=== PATIENT | male | born 1970 | race Caucasian/White ===

== ENCOUNTER 2016-06-23 15:26 | Emergency (ER) | payer OTHER ==
[~2016-06-23] VITALS: Ht 177.8 cm; Wt 95.3 kg
[2016-06-23] MEDS ORDERED: KETOROLAC 30 MG/ML VIAL (J1885) IM ONE (20:15)
--- NOTE | 2016-06-23 21:10 | REPUSA ---
CT of the lumbar spine without contrast Clinical history: Pain. Technique: Multiple axial CT images were obtained through the lumbar spine without administration of contrast. Coronal and sagittal 3-D reconstructed images were also obtained. Findings: The lumbar vertebral bodies are in satisfactory positioning and alignment. No fractures or dislocatio ns are demonstrated. 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 Interv ertebral disc spaces are well-maintained. There is no evidence of facet subluxation. The neural yeimy en appear grossly patent. The spinal canal demonstrates normal caliber and contour without evidence o f spinal stenosis. The surrounding soft tissues are within normal limits. Impression: Unremarkable CT examination of the lumbar spine.
[2016-06-23] MEDS ORDERED: tiZANidine 4 MG TAB PO ONE (21:15)
[2016-06-23 21:29] VITALS: BP 136/91
[2016-06-23] MEDS ORDERED: NAPR500T PO (21:40)
[2016-06-23] MEDS ORDERED: TIZA4CAP3 PO (21:40)
== END 2016-06-23 21:51 | disposition home or self-care (01) ==
LOC: M ED 18:16
DX: S39.012A Strain of muscle, fascia and tendon of lower back, initial encounter (principal); X58.XXXA Exposure to other specified factors, initial encounter; Y92.828 Other wilderness area as the place of occurrence of the external cause; Y93.23 Activity, snow (alpine) (downhill) skiing, snowboarding, sledding, tobogganing and snow tubing; Y99.8 Other external cause status; M54.32 Sciatica, left side; Z90.89 Acquired absence of other organs
CPT/HCPCS: 72131; 96372; 99282; J1885

== ENCOUNTER 2017-01-27 06:55 | Emergency (ER) | payer OTHER ==
[~2017-01-27] VITALS: Ht 177.8 cm; Wt 100.0 kg
[~2017-01-27 06:55] MED LIST: NAPR500T PO; TIZA4CAP3 PO
[2017-01-27 06:59] VITALS: BP 125/84
[2017-01-27] MEDS ORDERED: NAPROXEN 250 MG TAB PO ONE (07:15)
[2017-01-27] MEDS ORDERED: PRED20TA PO (07:34)
[2017-01-27] MEDS ORDERED: MOBI4TAB PO (07:34)
--- NOTE | 2017-01-27 07:58 | REP ---
Right shoulder series: Three views. History: Trauma. Shoulder pain. Findings: The right glenohumeral and acromioclavicular joints are normally aligned. No fracture or subluxation is seen. Periarticular soft tissues are unremarkable. Impression: Negative right shoulder series. Signed by Rodríguez Peres MD 01/27/2017 05:25 P
== END 2017-01-27 08:01 | disposition home or self-care (01) ==
LOC: M ED 06:55
DX: S43.401A Unspecified sprain of right shoulder joint, initial encounter (principal); X50.9XXA Other and unspecified overexertion or strenuous movements or postures, initial encounter; Y92.9 Unspecified place or not applicable; Y93.B2 Activity, push-ups, pull-ups, sit-ups; Y99.1 Military activity; M54.9 Dorsalgia, unspecified; Z87.891 Personal history of nicotine dependence

== ENCOUNTER → 2017-03-25 | Outpatient (CLI) | payer OTHER | LOC: M PAIN 10:45 | DX: G89.29 Other chronic pain (principal); M53.3 Sacrococcygeal disorders, not elsewhere classified; M51.26 Other intervertebral disc displacement, lumbar region; G47.30 Sleep apnea, unspecified; Z87.891 Personal history of nicotine dependence | CPT/HCPCS: G0463 ==

== ENCOUNTER → 2017-04-23 | Outpatient (CLI) | payer OTHER ==
[~2017-04-23] MED LIST changes: +BUPIVACAINE HCL 0.25% 30 ML VIAL As Ordered; +ISOVUE-M 300 61% 15ML VIAL (Q9967) As Ordered; +LIDOCAINE 1% MDV 20ML VIAL As Ordered; +LIDOCAINE 1% SDV INJ 30 ML VIAL As Ordered; -NAPR500T PO; -TIZA4CAP3 PO; +TRIAMCINOLONE ACETONIDE SUSP 40 MG/ML VIAL (J3301) As Ordered; +diazePAM 5 MG TAB As Ordered; +oxyCODONE 5MG TAB As Ordered
== END ==
LOC: M PAIN 10:30
DX: G89.29 Other chronic pain (principal); M46.1 Sacroiliitis, not elsewhere classified; G47.30 Sleep apnea, unspecified; M19.179 Post-traumatic osteoarthritis, unspecified ankle and foot
CPT/HCPCS: J3301

== ENCOUNTER → 2017-05-07 | Outpatient (CLI) | payer OTHER | LOC: M PAIN 14:45 | DX: M53.3 Sacrococcygeal disorders, not elsewhere classified (principal); M51.26 Other intervertebral disc displacement, lumbar region; G47.30 Sleep apnea, unspecified; M19.079 Primary osteoarthritis, unspecified ankle and foot; M19.011 Primary osteoarthritis, right shoulder; Z87.891 Personal history of nicotine dependence | CPT/HCPCS: G0463 ==

== ENCOUNTER → 2017-10-06 | Outpatient (CLI) | payer OTHER | LOC: M PAIN 13:00 | DX: M53.3 Sacrococcygeal disorders, not elsewhere classified (principal); M51.26 Other intervertebral disc displacement, lumbar region; Z87.891 Personal history of nicotine dependence | CPT/HCPCS: G0463 ==

== ENCOUNTER → 2017-11-16 | Outpatient (CLI) | payer OTHER ==
[~2017-11-16] MED LIST changes: -LIDOCAINE 1% MDV 20ML VIAL As Ordered
== END ==
LOC: M PAIN 08:45
DX: G89.29 Other chronic pain (principal); M46.1 Sacroiliitis, not elsewhere classified; M53.88 Other specified dorsopathies, sacral and sacrococcygeal region; G47.30 Sleep apnea, unspecified; M19.079 Primary osteoarthritis, unspecified ankle and foot; M19.011 Primary osteoarthritis, right shoulder; Z79.899 Other long term (current) drug therapy; Z87.891 Personal history of nicotine dependence
CPT/HCPCS: J3301

== ENCOUNTER 2018-02-07 04:56 | Emergency (ER) | payer OTHER ==
[2018-02-07 05:43] LABS: BASO % 0.4 % (0.0-1.0); EOS # 0.1 10^3/uL (0.0-0.50); EOS % 0.5 % (0.0-3.0); HEMATOCRIT 45.3 % (42.0-52.0); HEMOGLOBIN 15.6 g/dl (13.5-17.5); IMMATURE GRANULOCYTE % 0.3 % (0-3.0); LYMPH # 1.1 10^3/uL (1.5-4.5); LYMPH % 10.4 % (24.0-44.0); MEAN CORPUSCULAR HEMOGLOBIN 29.6 pg (27.0-33.0); MEAN CORPUSCULAR HGB CONC 34.4 g/dl (32.0-36.5); MONO # 1.3 10^3/uL (0.0-0.8); MONO % 11.8 % (0.0-5.0); NEUTROPHILS # 8.4 10^3/uL (1.8-7.7); NEUTROPHILS % 76.6 % (36.0-66.0); PLATELET COUNT, AUTOMATED 235 10^3/uL (150-450); RED BLOOD COUNT 5.27 10^6/uL (4.30-6.10); RED CELL DISTRIBUTION WIDTH 13.2 % (11.5-14.5)
[2018-02-07] MEDS: NS 1,000 ML IV (05:49)
[2018-02-07] MEDS: ACETAMINOPHEN TAB 650MG DOSE (2X325MG) PO (05:50)
[2018-02-07 05:56] LABS: LACTIC ACID SEPSIS PROTOCOL 1.1 MMOL/L (0.4-2.0)
[2018-02-07 06:04] LABS: ALBUMIN 3.8 GM/DL (3.2-5.2); ALBUMIN/GLOBULIN RATIO 1.06 (1.00-1.93); ALKALINE PHOSPHATASE 87 U/L (45-117); ALT/SGPT 32 U/L (12-78); ANION GAP 8 MEQ/L (8-16); AST/SGOT 20 U/L (7-37); BILIRUBIN,DIRECT 0.1 MG/DL (0.0-0.2); BILIRUBIN,TOTAL 0.4 MG/DL (0.2-1.0); BLOOD UREA NITROGEN 16 MG/DL (7-18); CALCIUM LEVEL 9.4 MG/DL (8.5-10.1); CARBON DIOXIDE LEVEL 27 MEQ/L (21-32); CHLORIDE LEVEL 105 MEQ/L (98-107); CREATININE FOR GFR 1.17 MG/DL (0.70-1.30); GLOMERULAR FILTRATION RATE > 60.0 (>60); GLUCOSE, FASTING 119 MG/DL (70-100); POTASSIUM SERUM 4.4 MEQ/L (3.5-5.1); SODIUM LEVEL 140 MEQ/L (136-145); TOTAL PROTEIN 7.4 GM/DL (6.4-8.2)
[2018-02-07] MEDS: IBUPROFEN 800 MG TAB PO (07:03)
[2018-02-07] MEDS: MOXIFLOXACIN 400 MG TAB PO (09:03)
== END 2018-02-07 09:07 | disposition home or self-care (01) ==
LOC: M ED 04:56
DX: J40 Bronchitis, not specified as acute or chronic (principal); Z87.891 Personal history of nicotine dependence
CPT/HCPCS: 71046

== ENCOUNTER → 2019-03-05 | Outpatient (CLI) | payer OTHER ==
[~2019-03-05] MED LIST changes: +AVEL1TAB3 PO; +BENA25CA4 PO; -BUPIVACAINE HCL 0.25% 30 ML VIAL As Ordered; -ISOVUE-M 300 61% 15ML VIAL (Q9967) As Ordered; -LIDOCAINE 1% SDV INJ 30 ML VIAL As Ordered; +MOBI4TAB PO; +NAPR-837 PO; +PRED20TA PO; +TIZA4CAP PO; -TRIAMCINOLONE ACETONIDE SUSP 40 MG/ML VIAL (J3301) As Ordered; -diazePAM 5 MG TAB As Ordered; -oxyCODONE 5MG TAB As Ordered
--- NOTE | 2019-03-05 13:53 | ECHO ---
DATE OF PROCEDURE: 03/05/2019 REFERRING PROVIDER: MARIBETH Hurtado INDICATION: Chest pain. Height 175 cm, weight 104 kg. DIMENSIONS: IVS: 1.1 LV: 4.1 LVPW: 1.1 LA: 3.5 Aorta: 3.4 RV: 2.8 Left atrial volume index: 24 IVC: 1.7 Mitral E wave velocity: 81 A wave: 60 E prime septal: 8.7 E prime lateral: 8.7 FINDINGS: The study is of acceptable technical quality. The patient is in sinus rhythm. Left ventricle is of normal size and systolic function with estimated left ventricular ejection fraction (LVEF) 60%. Right ventricle also appears normal size and systolic function. Both atria appear normal. All four cardiac valves were reasonably well seen and appear structurally normal. No pericardial effusion is present. Inferior vena cava is normal size. Aortic root and aortic arch appear normal. Abdominal aorta was not well visualized. Doppler interrogation reveals trace aortic insufficiency. Also trace mitral, tricuspid and pulmonic insufficiency. Evaluation of diastolic function reveals normal diastolic function of left ventricle based on tissue Doppler imaging of mitral annulus, mitral inflow pattern and size of left atrium. CONCLUSIONS: 1. Study is of acceptable technical quality. 2. Normal left ventricular (LV) size, systolic and diastolic function. 3. No significant valvular disease. 4. Normal central venous pressure and likely normal pulmonary artery pressure. COMMENT: Subacute bacterial endocarditis (SBE) prophylaxis is not recommended. No obvious findings to explain chest pain.
== END ==
LOC: M CARPUL 11:07
PROVIDERS: ATTEND Nurse Practitioner Family
DX: R07.89 Other chest pain (principal)

== ENCOUNTER → 2020-03-27 | Outpatient (CLI) | payer SELFPAY | LOC: M LABSMTC 18:43 | PROVIDERS: ATTEND Pediatrics | DX: Z11.59 Encounter for screening for other viral diseases (principal) ==

== ENCOUNTER → 2020-04-28 | Outpatient (CLI) | payer SELFPAY | LOC: M LABSMTC 10:05 | PROVIDERS: ATTEND Pediatrics | DX: Z20.822 Contact with and (suspected) exposure to COVID-19 (principal) ==

== ENCOUNTER 2021-05-24 08:15 | Emergency (ER) | payer OTHER, SELFPAY ==
[2021-05-24] MEDS ORDERED: NS 1,000 ML IV ONE (08:25)
[2021-05-24] MEDS ORDERED: ISOVUE-370 76% 100ML VIAL As Ordered ONE (08:33)
[2021-05-24 08:45] LABS: BASO % 0.4 % (0.0-1.0); EOS # 0.1 10^3/uL (0.0-0.5); EOS % 1.4 % (0.0-3.0); HEMATOCRIT 44.7 % (42.0-52.0); HEMOGLOBIN 15.1 g/dl (13.5-17.5); LYMPH # 1.6 10^3/uL (1.5-5.0); LYMPH % 33.1 % (24.0-44.0); MEAN CORPUSCULAR HEMOGLOBIN 29.1 pg (27.0-33.0); MEAN CORPUSCULAR HGB CONC 33.8 g/dl (32.0-36.5); MEAN CORPUSCULAR VOLUME 86.1 fl (80.0-96.0); MONO # 0.5 10^3/uL (0.0-0.8); MONO % 9.9 % (2.0-8.0); NEUTROPHILS # 2.7 10^3/uL (1.5-8.5); NEUTROPHILS % 54.8 % (36.0-66.0); PLATELET COUNT, AUTOMATED 265 10^3/uL (150-450); RED BLOOD COUNT 5.19 10^6/uL (4.30-6.10); WHITE BLOOD COUNT 4.9 10^3/uL (4.0-10.0)
[2021-05-24 08:59] LABS: INR 0.96; PROTHROMBIN TIME 13.2 SECONDS (12.7-14.5)
[2021-05-24 09:00] LABS: PARTIAL THROMBOPLASTIN TIME 28.5 SECONDS (25.9-37.0)
[2021-05-24] MEDS ORDERED: MORPHINE 2 MG/ML 1ML VIAL (J2270) IV PRN (09:15)
[2021-05-24 09:18] LABS: ALT/SGPT 47 U/L (12-78); AMYLASE 45 U/L (25-115); BILIRUBIN,DIRECT < 0.1 MG/DL (0.0-0.2); BILIRUBIN,TOTAL 0.2 MG/DL (0.2-1.0); BLOOD UREA NITROGEN 23 MG/DL (7-18); CALCIUM LEVEL 8.9 MG/DL (8.5-10.1); CARBON DIOXIDE LEVEL 26 MEQ/L (21-32); CHLORIDE LEVEL 109 MEQ/L (98-107); CREATININE FOR GFR 1.25 MG/DL (0.70-1.30); ETHYL ALCOHOL (ETHANOL) < 0.003 % (0.000-0.010); GLOMERULAR FILTRATION RATE > 60.0 (>60); GLUCOSE, FASTING 101 MG/DL (70-100); LIPASE 109 U/L (73-393); POTASSIUM SERUM 4.8 MEQ/L (3.5-5.1); SODIUM LEVEL 141 MEQ/L (136-145); TOTAL PROTEIN 7.7 GM/DL (6.4-8.2)
[2021-05-24 09:21] LABS: CK-MB VALUE MASS < 1.0 NG/ML (<3.6); CPK CREATINE PHOSPHOKINASE 171 U/L (39-308); MB/CK RELATIVE INDEX 0.58 (< OR =4)
[2021-05-24 10:51] LABS: RSV AMPLIFICATION NEGATIVE (NEGATIVE)
[2021-05-24] MEDS ORDERED: KETOROLAC 30 MG/ML 1ML VIAL IV ONE (13:15)
[2021-05-24 13:35] LABS: APPEARANCE, URINE CLEAR (CLEAR); BACTERIA, URINE AUTO NEGATIVE (NEGATIVE); BILIRUBIN, URINE AUTO NEGATIVE (NEGATIVE); BLOOD, URINE BLOOD NEGATIVE (NEGATIVE); COLOR, URINE YELLOW (YELLOW); GLUCOSE, URINE (UA) AUTO NEGATIVE (NEGATIVE); KETONE, URINE AUTO NEGATIVE (NEGATIVE); LEUKOCYTE ESTERASE, URINE AUTO NEGATIVE (NEGATIVE); NITRITE, URINE AUTO NEGATIVE (NEGATIVE); PROTEIN, URINE AUTO NEGATIVE (NEGATIVE); RBC, URINE AUTO 0 /HPF (0-3); SPECIFIC GRAVITY URINE AUTO 1.025 (1.002-1.035); SQUAMOUS EPITHELIAL CELL UR AU 0 /HPF (0-6); UROBILINOGEN, URINE AUTO 0.2 mg/dL (0.0-2.0); WBC, URINE AUTO 0 /HPF (0-3)
[2021-05-24 13:59] LABS: AMPHETAMINES LEVEL URINE NEGATIVE (NEGATIVE); BARBITURATES URINE NEGATIVE (NEGATIVE); BENZODIAZEPINES URINE NEGATIVE (NEGATIVE); CANNABINOIDS URINE NEGATIVE (NEGATIVE); COCAINE METABOLITE URINE NEGATIVE (NEGATIVE); METHADONE URINE NEGATIVE (NEGATIVE); OPIATES URINE POSITIVE (NEGATIVE); PHENCYCLIDINE URINE NEGATIVE (NEGATIVE)
[2021-05-24 14:15] VITALS: BP 135/78
[2021-05-24] MEDS ORDERED: KETO10TAB PO (15:08)
[2021-05-24] MEDS ORDERED: METH-1165 PO (15:08)
== END 2021-05-24 16:04 | disposition home or self-care (01) ==
LOC: EDBD 08:15 → M ED 08:15
DX: M62.838 Other muscle spasm (principal); T40.2X5A Adverse effect of other opioids, initial encounter; K21.9 Gastro-esophageal reflux disease without esophagitis; F17.200 Nicotine dependence, unspecified, uncomplicated; Z88.6 Allergy status to analgesic agent; W11.XXXA Fall on and from ladder, initial encounter; Y92.009 Unspecified place in unspecified non-institutional (private) residence as the place of occurrence of the external cause; Y93.9 Activity, unspecified; Y99.9 Unspecified external cause status
CPT/HCPCS: 70450; 71045; 71260; 72125; 73564; 73590; 73610; 74177; 80047; 80048; 80076; 80307; 81001; 82077; 82150; 82550; 82553; 83605; 83690; 84484; 85025; 85610; 85730; 86850; 86900; 86901; 87631; 93041; 94760; 96361; 96374; 96375; 99285; J1885; J2270; Q9967

== ENCOUNTER 2021-08-28 20:53 | Observation (INO) | payer OTHER ==
[~2021-08-28] VITALS: Ht 177.8 cm; Wt 111.4 kg
[~2021-08-28 20:53] MED LIST changes: +KETO10TAB PO; +METH-1165 PO
[2021-08-28] MEDS ORDERED: FAMO20TA PO (21:09)
[2021-08-28 23:16] LABS: BASO # 0.1 10^3/uL (0.0-0.2); BASO % 0.7 % (0.0-1.0); EOS # 0.3 10^3/uL (0.0-0.5); EOS % 3.7 % (0.0-3.0); HEMATOCRIT 43.1 % (42.0-52.0); LYMPH # 2.9 10^3/uL (1.5-5.0); LYMPH % 37.6 % (24.0-44.0); MEAN CORPUSCULAR HEMOGLOBIN 29.4 pg (27.0-33.0); MEAN CORPUSCULAR HGB CONC 34.8 g/dl (32.0-36.5); MEAN CORPUSCULAR VOLUME 84.5 fl (80.0-96.0); MONO # 0.8 10^3/uL (0.0-0.8); NEUTROPHILS # 3.6 10^3/uL (1.5-8.5); NEUTROPHILS % 47.7 % (36.0-66.0); PLATELET COUNT, AUTOMATED 252 10^3/uL (150-450); WHITE BLOOD COUNT 7.6 10^3/uL (4.0-10.0)
[2021-08-28 23:49] LABS: RSV AMPLIFICATION NEGATIVE (NEGATIVE)
[2021-08-28 23:52] LABS: BLOOD UREA NITROGEN 23 MG/DL (7-18); CALCIUM LEVEL 8.9 MG/DL (8.5-10.1); CARBON DIOXIDE LEVEL 25 MEQ/L (21-32); CHLORIDE LEVEL 111 MEQ/L (98-107); CK-MB VALUE MASS < 1.0 NG/ML (<3.6); CPK CREATINE PHOSPHOKINASE 158 U/L (39-308); CREATININE FOR GFR 1.18 MG/DL (0.70-1.30); ETHYL ALCOHOL (ETHANOL) < 0.003 % (0.000-0.010); GLOMERULAR FILTRATION RATE > 60.0 (>60); GLUCOSE, FASTING 114 MG/DL (70-100); MB/CK RELATIVE INDEX 0.63 (< OR =4); POTASSIUM SERUM 4.3 MEQ/L (3.5-5.1); SODIUM LEVEL 141 MEQ/L (136-145)
[2021-08-29] MEDS ORDERED: VITMTA PO
[2021-08-29] MEDS ORDERED: HOME MED LIST COMPLETE! XX SCH (00:05)
[2021-08-29 01:12] LABS: AMPHETAMINES LEVEL URINE NEGATIVE (NEGATIVE); BARBITURATES URINE NEGATIVE (NEGATIVE); BENZODIAZEPINES URINE NEGATIVE (NEGATIVE); CANNABINOIDS URINE NEGATIVE (NEGATIVE); COCAINE METABOLITE URINE NEGATIVE (NEGATIVE); METHADONE URINE NEGATIVE (NEGATIVE); OPIATES URINE NEGATIVE (NEGATIVE); PHENCYCLIDINE URINE NEGATIVE (NEGATIVE)
[2021-08-29 07:54] LABS: BASO % 0.6 % (0.0-1.0); EOS # 0.3 10^3/uL (0.0-0.5); EOS % 4.1 % (0.0-3.0); HEMATOCRIT 45.1 % (42.0-52.0); HEMOGLOBIN 15.6 g/dl (13.5-17.5); LYMPH # 2.1 10^3/uL (1.5-5.0); LYMPH % 33.8 % (24.0-44.0); MEAN CORPUSCULAR HEMOGLOBIN 29.3 pg (27.0-33.0); MEAN CORPUSCULAR HGB CONC 34.6 g/dl (32.0-36.5); MEAN CORPUSCULAR VOLUME 84.6 fl (80.0-96.0); MONO # 0.7 10^3/uL (0.0-0.8); MONO % 11.3 % (2.0-8.0); NEUTROPHILS # 3.1 10^3/uL (1.5-8.5); NEUTROPHILS % 49.7 % (36.0-66.0); PLATELET COUNT, AUTOMATED 227 10^3/uL (150-450); RED BLOOD COUNT 5.33 10^6/uL (4.30-6.10); WHITE BLOOD COUNT 6.3 10^3/uL (4.0-10.0)
[2021-08-29 08:18] LABS: ALBUMIN 3.6 GM/DL (3.2-5.2); ALT/SGPT 38 U/L (12-78); BILIRUBIN,TOTAL 0.6 MG/DL (0.2-1.0); BLOOD UREA NITROGEN 21 MG/DL (7-18); CALCIUM LEVEL 9.2 MG/DL (8.5-10.1); CARBON DIOXIDE LEVEL 25 MEQ/L (21-32); CHLORIDE LEVEL 112 MEQ/L (98-107); CREATININE FOR GFR 1.07 MG/DL (0.70-1.30); GLOMERULAR FILTRATION RATE > 60.0 (>60); GLUCOSE, FASTING 115 MG/DL (70-100); MAGNESIUM LEVEL 2.6 MG/DL (1.8-2.4); SODIUM LEVEL 142 MEQ/L (136-145); TOTAL PROTEIN 7.2 GM/DL (6.4-8.2)
[2021-08-29 17:25] VITALS: BP 116/66
== END 2021-08-29 19:13 | disposition home or self-care (01) ==
LOC: M ED 20:53 → M ED INP 20:54 → ENRESERV 08-29 14:41
PROVIDERS: ADMIT Internal Medicine; ATTEND Internal Medicine
DX: G40.89 Other seizures (principal); G47.33 Obstructive sleep apnea (adult) (pediatric); K21.9 Gastro-esophageal reflux disease without esophagitis; Z87.891 Personal history of nicotine dependence; Z79.899 Other long term (current) drug therapy

== ENCOUNTER 2024-02-28 10:07 | Emergency (ER) | payer OTHER ==
[~2024-02-28] VITALS: Ht 177.8 cm; Wt 120.5 kg
[~2024-02-28 10:07] MED LIST changes: +FAMO20TA PO; +VITMTA PO
[2024-02-28] MEDS ORDERED: GABA-284 PO (10:22)
[2024-02-28] MEDS: IPRATROPIUM 0.5MG/ALBUTEROL 2.5MG INH SOL UD 3ML (DUONEB) NEB ONE (12:32)
[2024-02-28 13:02] LABS: CK-MB VALUE MASS < 1.0 NG/ML (<3.6)
[2024-02-28 13:04] LABS: BLOOD UREA NITROGEN 16 MG/DL (9-23); CALCIUM LEVEL 8.8 MG/DL (8.5-10.1); CARBON DIOXIDE LEVEL 24 MMOL/L (20-31); CHLORIDE LEVEL 111 MMOL/L (98-107); CREATININE FOR GFR 0.88 MG/DL (0.70-1.30); GLOMERULAR FILTRATION RATE > 60.0 (>56); GLUCOSE, FASTING 109 MG/DL (60-100); SODIUM LEVEL 140 MMOL/L (136-145)
[2024-02-28 13:05] LABS: CPK CREATINE PHOSPHOKINASE 230 U/L (46-171); MB/CK RELATIVE INDEX 0.43 (< OR =4)
[2024-02-28 13:14] LABS: BASO % 0.4 % (0.0-1.0); EOS # 0.3 10^3/uL (0.0-0.5); EOS % 2.9 % (0.0-3.0); LYMPH # 2.4 10^3/uL (1.5-5.0); LYMPH % 24.6 % (24.0-44.0); MEAN CORPUSCULAR HEMOGLOBIN 30.2 pg (27.0-33.0); MEAN CORPUSCULAR HGB CONC 34.9 g/dl (32.0-36.5); MEAN CORPUSCULAR VOLUME 86.5 fl (80.0-96.0); MONO # 1.2 10^3/uL (0.0-0.8); NEUTROPHILS # 5.6 10^3/uL (1.5-8.5); NEUTROPHILS % 58.8 % (36.0-66.0); PLATELET COUNT, AUTOMATED 230 10^3/uL (150-450); RED BLOOD COUNT 4.97 10^6/uL (4.30-6.10); WHITE BLOOD COUNT 9.5 10^3/uL (4.0-10.0)
[2024-02-28 13:34] VITALS: TEMP 98.9
[2024-02-28] MEDS ORDERED: BENZ200C70 PO (13:48)
[2024-02-28] MEDS ORDERED: CEFD1CAP9 PO (13:48)
[2024-02-28] MEDS ORDERED: VENTAER INH (13:48)
[2024-02-28] MEDS ORDERED: DOXY-441 PO (13:48)
[2024-02-28] MEDS: CEFDINIR 300 MG CAP (OMNICEF) PO ONE (13:54)
[2024-02-28] MEDS: DOXYCYCLINE HYCLATE 100MG TABLET PO ONE (13:54)
[2024-02-28 13:56] VITALS: BP 121/70; O2SAT 95
== END 2024-02-28 14:02 | disposition home or self-care (01) ==
LOC: M ED 10:07
DX: J18.9 Pneumonia, unspecified organism (principal); K21.9 Gastro-esophageal reflux disease without esophagitis; M54.50 Low back pain, unspecified; G47.33 Obstructive sleep apnea (adult) (pediatric); Z88.5 Allergy status to narcotic agent; Z88.8 Allergy status to other drugs, medicaments and biological substances; Z79.52 Long term (current) use of systemic steroids; Z79.2 Long term (current) use of antibiotics; Z79.899 Other long term (current) drug therapy